=== PATIENT | male | born 1975 | race Caucasian/White ===

== ENCOUNTER 2019-09-12 06:50 | Day surgery (SDC) | payer OTHER, SELFPAY ==
[~2019-09-12] VITALS: Ht 177.8 cm; Wt 99.8 kg
[2019-09-12] MEDS ORDERED: MIDAZOLAM 2 MG/2 ML VIAL ONE (08:47)
[2019-09-12] MEDS ORDERED: LIDOCAINE 2% 100 MG/5 ML UJET TP ONE (08:47)
[2019-09-12] MEDS ORDERED: fentaNYL 0.05 MG/ML VIAL ONE (08:47)
[2019-09-12] MEDS ORDERED: MIDAZOLAM 2 MG/2 ML VIAL IVP ONE (09:16)
[2019-09-12] MEDS ORDERED: fentaNYL 0.05 MG/ML VIAL IVP ONE (09:18)
== END 2019-09-12 10:50 | disposition home or self-care (01) ==
LOC: MDS 06:50 → MMU 06:51 → MDS 10:50
PROVIDERS: ATTEND Internal Medicine Gastroenterology
DX: R10.84 Generalized abdominal pain (principal); Z90.89 Acquired absence of other organs
CPT/HCPCS: 36415; 45378; J2250; J3010